=== PATIENT | male | born 1955 | race Caucasian/White ===

== ENCOUNTER 2022-03-18 21:24 | Observation (INO) ==
[2022-03-19] MEDS ORDERED: Melatonin 3 MG TABLET PO PRN (00:43)
[2022-03-19] MEDS ORDERED: Naloxone 0.4 MG/ML INJ IVP PRN (00:43)
[2022-03-19] MEDS ORDERED: Acetaminophen 325 MG TABLET PO PRN (00:43)
[2022-03-19] MEDS ORDERED: Ondansetron 4 MG/2 ML VIAL IVP PRN (00:43)
[2022-03-19] MEDS ORDERED: *HR* Heparin 5,000 UNIT/ML VIAL IVP PRN ×2 (01:17)
[2022-03-19] MEDS ORDERED: Perflutren Lipid Microsphere 1.3 ML in 0.9 % Sodium Chloride 8.7 ML IVP PRN (01:18)
[2022-03-19] MEDS ORDERED: Nitroglycerin 0.4 MG TAB.SUBL SL PRN (01:18)
[2022-03-19] MEDS ORDERED: Heparin 25,000UNIT/250ML 1/2NS 25,000 UNIT/250 ML IV.SOLN IVC SCH (01:30)
[2022-03-19] MEDS ORDERED: Dextrose Gel 15 GM/37.5 ML TUBE PO PRN ×2 (01:45)
[2022-03-19] MEDS ORDERED: *HR* Dextrose 50 % in Water (Syg) 50 ML SYRINGE IVP PRN (01:45)
[2022-03-19] MEDS ORDERED: D5% in Water 1,000 ML IVC PRN (01:45)
[2022-03-19] MEDS ORDERED: 0.9 % Sodium Chloride 1,000 ML IVC ONE (01:45)
[2022-03-19 03:16] LABS: Hematocrit 42.3 % (37.5-50.1); Hemoglobin 14.4 g/dL (12.9-16.9); Mean Corpuscular Hemoglobin 31.8 pg (28.0-33.3); Mean Corpuscular Volume 93.4 fL (83.0-100.0); Mean Platelet Volume 10.8 fL (9.4-12.4); Platelet Count 185 K/mcL (140-400); Red Blood Count 4.53 M/mcL (4.19-5.50); White Blood Count 7.7 K/mcL (4.3-11.1)
[2022-03-19 03:28] LABS: Heparin anti-factor XA UFH 0.52 IU/mL (0.30-0.70); INR 1.2; Prothrombin Time 13.1 Seconds (9.4-12.1)
[2022-03-19 03:48] LABS: Thyroid Stimulating Hormone 1.22 mcIU/mL (0.340-5.600)
[2022-03-19 04:11] LABS: BUN/Creatinine Ratio 16 (6-26); Blood Urea Nitrogen 18 mg/dL (8-23); Calcium 8.3 mg/dL (8.6-10.3); Carbon Dioxide 21 mEq/L (23-29); Chloride 107 mEq/L (98-107); Glucose 94 mg/dL (70-105); Osmolality,Calculated 284 (280-300); Potassium 4.7 mEq/L (3.5-5.1); Sodium 136 mEq/L (136-145); eGFR For African Americans > 60 (> 60); eGFR For Non-African Americans > 60 (> 60)
[2022-03-19] MEDS ORDERED: carvediloL 6.25 MG TABLET PO SCH (08:00)
[2022-03-19] MEDS: Aspirin 81 MG TAB.CHEW PO SCH (09:44)
[2022-03-19] MEDS: amLODIPine 5 MG TABLET PO SCH (09:44)
[2022-03-19] MEDS ORDERED: *HR* FentaNYL (PF) 100 MCG/2 ML VIAL ONE (13:35)
[2022-03-19] MEDS ORDERED: *HR* Midazolam HCl 2 MG/2 ML VIAL ONE (13:35)
[2022-03-19] MEDS ORDERED: Iopamidol - 370 200 ML INFUS..BTL ONE (13:36)
[2022-03-19] MEDS ORDERED: Nitroglycerin 1,000 MCG/5 ML VIAL IV ONE (13:36)
[2022-03-19] MEDS ORDERED: 0.9 % Sodium Chloride 2,000 ML ONE (13:36)
[2022-03-19] MEDS ORDERED: *HR* Heparin 10,000 UNIT/10 ML VIAL ONE (13:36)
[2022-03-19] MEDS ORDERED: Heparin 1,000 UNITS/500 mL 500 ML ONE (13:36)
[2022-03-19] MEDS ORDERED: *HR* Bivalirudin 250 MG VIAL IVC ONE ×3 (14:44→15:36)
[2022-03-19] MEDS ORDERED: *HR* Ticagrelor 90 MG TABLET ONE (15:05)
[2022-03-19] MEDS ORDERED: 0.9 % Sodium Chloride 1,000 ML IVC SCH (16:00)
[2022-03-19] MEDS: carvediloL 6.25 MG TABLET PO SCH (16:59)
[2022-03-19] MEDS: Lisinopril-HCTZ 20-12.5mg TABLET PO SCH (17:21)
[2022-03-19] MEDS: *HR* Ticagrelor 90 MG TABLET PO SCH (20:25)
[2022-03-20 03:12] LABS: Chol/HDL Ratio 2.9 (0-4.9)
[2022-03-20 03:32] VITALS: TEMP 98.2
[2022-03-20] MEDS ORDERED: *HR* Enoxaparin 40 MG/0.4 ML SYRINGE SQ SCH (06:00)
[2022-03-20 07:05] VITALS: BP 164/91; PULSE 55; O2SAT 96
[2022-03-20 08:21] LABS: Estimated Average Glucose 111 mg/dl; Hemoglobin A1C 5.5 %
[2022-03-20] MEDS: Lisinopril-HCTZ 20-12.5mg TABLET PO SCH (08:30)
[2022-03-20] MEDS: carvediloL 6.25 MG TABLET PO SCH (08:30)
[2022-03-20] MEDS: *HR* Ticagrelor 90 MG TABLET PO SCH (08:31)
[2022-03-20] MEDS: Aspirin 81 MG TAB.CHEW PO SCH (08:31)
[2022-03-20] MEDS: amLODIPine 5 MG TABLET PO SCH (08:32)
== END 2022-03-20 10:31 | disposition home or self-care (01) ==
LOC: 3BNU → SUATTDRO 23:33
PROVIDERS: ADMIT Internal Medicine; ATTEND Internal Medicine